=== PATIENT | male | born 1995 ===

== ENCOUNTER 2018-06-26 14:46 | Emergency (ER) | payer MEDICAID ==
[2018-06-26 15:00] VITALS: BMI 26.3
[2018-06-26 15:03] VITALS: TEMP 97.5
--- NOTE | 2018-06-26 15:19 | ED PDOC ---
HPI: Back Time Seen by Provider: 06/26/18 15:06 Chief Complaint (Nursing): Back Pain Chief Complaint (Provider): Back Pain History Per: Patient, Family (family member) History/Exam Limitations: no limitations Onset/Duration Of Symptoms: Days (2x weeks) Current Symptoms Are (Timing): Still Present Severity: Moderate Previous Symptoms: Back Pain, Other (right upper arm pain) Associated Symptoms: None Additional Complaint(s): 23 year old male with no past medical history presents to the ED, accompanied by his family member, for an evaluation of diffuse back pain that has been ongoing for 2x weeks, accompanied by right upper arm pain. Patient admits to heavy lifting daily at work at a [employer]. Patient is right hand dominant. Symptoms worsen with movement. Otherwise (-) paresthesias, (-) weakness/numbness, (-) acute bowel or bladder dysfunction, (-) fever, (-) nausea/vomiting, (-) saddle anesthesia (-) dysuria/urinary symptoms. Has no history of prior back problem/surgery. Patient denies taking any pain medications prior to arrival. PMD: None. Past Medical History Reviewed: Historical Data, Nursing Documentation, Vital Signs Vital Signs: Last Vital Signs Temp 97.5 F L 06/26/18 15:00 Pulse 84 06/26/18 15:00 Resp 20 06/26/18 15:00 BP 145/88 06/26/18 15:00 Pulse Ox 99 06/26/18 15:00 - Medical History PMH: No Chronic Diseases - Surgical History Surgical History: No Surg Hx - Family History Family History: States: No Known Family Hx - Social History Current smoker - smoking cessation education provided: No Drugs: Denies - Home Medications Home Medications: Ambulatory Orders Medication Instructions Recorded Cyclobenzaprine [Cyclobenzaprine 10 mg PO Q8 PRN #12 tab 06/26/18 HCl] RX: Naproxen 500 mg PO BID PRN #20 tab 06/26/18 - Allergies Allergies/Adverse Reactions: Allergies Allergy/AdvReac Type Severity Reaction Status Date / Time No Known Allergies Allergy Verified 06/26/18 15:01 Review of Systems ROS Statement: Except As Marked, All Systems Reviewed And Found Negative Constitutional: Negative for: Fever Gastrointestinal: Negative for: Vomiting Genitourinary Male: Negative for: Dysuria Musculoskeletal: Positive for: Arm Pain (right upper), Back Pain Neurological: Negative for: Weakness, Numbness Physical Exam - Reviewed Nursing Documentation Reviewed: Yes Vital Signs Reviewed: Yes - Physical Exam Comments: GENERAL APPEARANCE: Patient is awake, alert, oriented x 3, in no acute distress. SKIN: Warm, dry; (-) cyanosis. NECK: Supple, FROM (-) tenderness, (-) stiffness, (-) lymphadenopathy. CHEST AND RESPIRATORY: (-) rales, (-) rhonchi, (-) wheezes; breath sounds equal bilaterally. Respirations even and nonlabored. HEART AND CARDIOVASCULAR: (-) irregularity ABDOMEN AND GI: Soft; (-) tenderness; (-) palpable mass. BACK: (+) left and right paralumbar and parathoracic tenderness, (-) spasm, (-) direct bony tenderness, (-) deformity. EXTREMITIES: Right upper extremity: (+) tenderness to distal right bicep and lateral aspect of right elbow. Full ROM, (-) warmth (-) erythema, (-) effusion, (-) skin break, (-) deformity (-) ecchymosis. Distal pulses good bilaterally. Remainder of extremities nontender with FROM. NEURO AND PSYCH: Mental status as above. Intact sensation bilaterally; normal strength in extension of the knees, plantar and dorsiflexion of the toes. Gait: steady. Speech: clear. (-) facial asymmetry - ECG O2 Sat by Pulse Oximetry: 99 (RA) Pulse Ox Interpretation: Normal Medical Decision Making Medical Decision Makin Clinical impression: 23 year old male with musculoskeletal arm and back pain. Initial plan: * flexeril 10 mg PO ( Not driving home) * toradol 30 mg IM once * Re-evaluation 1625 On re-evaluation, patient reports improvement of symptoms. On exam, patient remains AAOx3, in no acute distress. Lungs clear to auscultation, cardiac RRR, repeat neuro exam shows no focal findings. Vitals stable. Lab/Diagnostic results d/w the patient in great detail. Diagnosis of musculoskeletal arm and back pain d/w the patient. Based on history, exam and diagnostic results, plan will be for outpatient follow up. Patient instructed to follow-up with pmd / referral provided / the clinic in 1- 2 days without fail. Advised to take medication as prescribed. Return to the emergency room at any time for any new or worsening symptoms. Patient states he fully agrees with and understands discharge instructions. States that he agrees with the plan and disposition. Verbalized and repeated discharge instructions and plan. I have given the patient opportunity to ask any additional questions. Scribe Attestation: Documented by Jhoana Cortez, acting as a scribe for Jhoana Galo. Provider Scribe Attestation: All medical record entries made by the Scribe were at my direction and personally dictated by me. I have reviewed the chart and agree that the record accurately reflects my personal performance of the history, physical exam, medical decision making, and the department course for this patient. I have also personally directed, reviewed, and agree with the discharge instructions and disposition. Disposition - Clinical Impression Clinical Impression: Back pain, Pain in right upper arm, Musculoskeletal pain, Muscle strain - Patient ED Disposition Is Patient to be Admitted: No Counseled Patient/Family Regarding: Studies Performed, Diagnosis, Need For Followup, Rx Given - Disposition Referrals: [facility] [Outside] Mustapha Kemp MD [Staff Provider] - Disposition: Routine/Home Disposition Time: 16:25 Condition: STABLE Additional Instructions: La atencin mdica de emergencia que recibi hoy se dirigi a rome sntomas agudos. Si le recetaron algn medicamento, llnelo y tmelo segn las indicaciones. Los sntomas pueden tardar varios villarreal en resolverse. Regrese al Departamento de Emergencias si rome sntomas empeoran, no mejoran o si tiene otros problemas. Comunquese con winters mdico dentro de 2 villarreal para zayra nueva evaluacin y papa un seguimiento o llame a sallie de los mdicos / clnicas a los que connor sido referido y que figuran en el formulario de Informacin de visita al paciente que se incluye en winters [place]. Lleve con usted a winters consulta de seguimiento toda la documentacin que recibi del aiyana junto con los medicamentos que est tomando. Nuestro tratamiento no puede reemplazar la atencin mdica continua por parte de un proveedor de atencin primaria (PCP) fuera del departamento de emergencias. Prescriptions: Cyclobenzaprine [Cyclobenzaprine HCl] 10 mg PO Q8 PRN #12 tab PRN Reason: Muscle Spasm RX: Naproxen 500 mg PO BID PRN #20 tab PRN Reason: Pain, Moderate (4-7) Instructions: Muscle Strain, Low Back Pain in Adults, Upper Back Pain (DC), Muscle and Bone Pain (DC), Do I Need an X-ray (or Other Test) for Low Back Pain? Forms: [employer] (Mauritanian) Print Language: FRISIAN - POA Present On Arrival: None
[2018-06-26 16:35] VITALS: BP 140/85; PULSE 82; RESP 16; O2SAT 100
== END 2018-06-26 16:36 | disposition home or self-care (01) ==
LOC: H.ER 14:46
DX: M79.601 Pain in right arm (principal); X50.9XXA Other and unspecified overexertion or strenuous movements or postures, initial encounter; Y99.0 Civilian activity done for income or pay
CPT/HCPCS: 96372; 99282; J1885